=== PATIENT | female | born 1985 | race African-American/Black ===

== ENCOUNTER 2024-12-15 10:21 | Observation (INO) | payer OTHER ==
[~2024-12-15] VITALS: Ht 167.6 cm; Wt 70.3 kg
[2024-12-15] VITALS (10 sets, daily range): BP systolic 104–112; BP diastolic 62–73; PULSE 70–88; RESP 15–20; TEMP 97.9–98.7; O2SAT 100
[2024-12-15 10:59] LABS: BASOPHILS # (AUTO) 0.1 (0.0-0.1); BASOPHILS % 1.6 % (0.0-1.0); EOSINOPHILS % 0.6 % (0.0-6.0); LYMPHOCYTES # (AUTO) 0.8 (1.0-3.2); LYMPHOCYTES % 25.3 % (18.0-39.1); MEAN CORPUSCULAR HEMOGLOBIN 15.3 pg (28-32); MEAN CORPUSCULAR HGB CONC 24.7 g/dL (31-35); MONOCYTES # (AUTO) 0.3 (0.2-0.8); MONOCYTES % 8.1 % (4.4-11.3); NEUTROPHILS % 64.1 % (38.7-80.0); PLATELET COUNT 134 x10e3/uL (140-360); RED BLOOD COUNT 3.47 x10e6/uL (3.6-5.1); RED CELL DISTRIBUTION WIDTH 21.8 % (11.7-14.4); WHITE BLOOD COUNT 3.08 x10e3/uL (4.8-10.8)
[2024-12-15] MEDS: SODIUM CHLORIDE 0.9% 1000ML 1,000 ML IV STA (10:59)
[2024-12-15 11:03] LABS: HEMATOCRIT 21.5 % (34.2-44.1); HEMOGLOBIN 5.3 g/dL (12.0-16.0)
[2024-12-15 11:15] LABS: INR 0.94; PARTIAL THROMBOPLASTIN TIME 24.1 seconds (23.8-35.5); PROTHROMBIN TIME 13.1 seconds (11.9-14.5)
[2024-12-15 11:17] LABS: ALANINE AMINOTRANSFERASE 9 IU/L (0-55); ALBUMIN 4.6 g/dL (3.5-5.0); ALBUMIN/GLOBULIN RATIO 1.3 (0.8-2.0); ALKALINE PHOSPHATASE 57 IU/L (40-150); BILIRUBIN,TOTAL 0.4 mg/dL (0.2-1.2); BLOOD UREA NITROGEN 6 mg/dL (7-26); BUN/CREATININE RATIO 8 (6-25); CALCIUM 9.2 mg/dL (8.4-10.2); CARBON DIOXIDE 22 mmol/L (22-29); CHLORIDE 106 mmol/L (98-107); CREATININE, SERUM 0.77 mg/dL (0.57-1.11); EST GLOMERULAR FILTRATION RATE 101 ML/MIN (>=60); GLUCOSE 82 mg/dL (74-118); SODIUM 139 mmol/L (136-145); TOTAL PROTEIN 8.1 g/dL (6.5-8.1)
[2024-12-15] MEDS ORDERED: ONDANSETRON HCL INJ 2MG/ML 2ML 2 MG/ML VIAL IV PRN (11:30)
[2024-12-15 12:22] LABS: FERRITIN 6.19 ng/mL (4.63-204.00)
[2024-12-15] MEDS ORDERED: SODIUM CHLORIDE 0.9% 500ML 500 ML ONE (12:24)
[2024-12-15] MEDS ORDERED: ALBUTEROL/IPRATROPIUM 3 ML NEB NEB PRN (15:45)
[2024-12-15] MEDS ORDERED: ACETAMINOPHEN 325 MG TAB PO PRN (15:45)
[2024-12-15] MEDS ORDERED: METOPROLOL TARTRATE INJ 1 MG/ML VIAL IV PRN (15:45)
[2024-12-15] MEDS ORDERED: DOCUSATE SODIUM 100 MG CAP PO PRN (15:45)
[2024-12-15] MEDS ORDERED: SODIUM CHLORIDE 0.9% 250ML 250 ML ONE (17:43)
[2024-12-15] MEDS ORDERED: MELATONIN 3 MG TAB PO PRN (21:00)
[2024-12-15] MEDS: SODIUM CHLORIDE 0.9% 1000ML 1,000 ML IV SCH (21:42)
[2024-12-16 00:14] LABS: HEMATOCRIT 21.9 % (34.2-44.1); HEMOGLOBIN 6.3 g/dL (12.0-16.0)
[2024-12-16 04:00] VITALS: BP 106/72; PULSE 63; RESP 20; TEMP 98; O2SAT 100
[2024-12-16 08:19] VITALS: BP 117/76; PULSE 65; RESP 18; TEMP 98.7; O2SAT 100
[2024-12-16 08:21] VITALS: BP 117/76; PULSE 65; RESP 18; TEMP 98.7; O2SAT 100
[2024-12-16] MEDS ORDERED: SODIUM FERRIC GLUCONATE COMPLX 125 MG in SODIUM CHLORIDE 0.9% 100 ML IV SCH (09:00)
[2024-12-16] MEDS: CYANOCOBALAMIN INJ 1,000 MCG/ML VIAL IM SCH (09:29)
[2024-12-16] MEDS: IRON SUCROSE 100 MG in SODIUM CHLORIDE 0.9% 100 ML IV SCH (09:29)
[2024-12-16 09:52] LABS: BASOPHILS % 1.3 % (0.0-1.0); EOSINOPHILS % 0.3 % (0.0-6.0); HEMATOCRIT 27.5 % (34.2-44.1); HEMOGLOBIN 8.1 g/dL (12.0-16.0); LYMPHOCYTES # (AUTO) 0.8 (1.0-3.2); LYMPHOCYTES % 25.1 % (18.0-39.1); MEAN CORPUSCULAR HEMOGLOBIN 20.8 pg (28-32); MEAN CORPUSCULAR HGB CONC 29.5 g/dL (31-35); MEAN CORPUSCULAR VOLUME 70.7 fL (81-99); MONOCYTES # (AUTO) 0.3 (0.2-0.8); MONOCYTES % 8.7 % (4.4-11.3); NEUTROPHILS # (AUTO) 1.9 (2.1-6.9); NEUTROPHILS % 64.3 % (38.7-80.0); RED BLOOD COUNT 3.89 x10e6/uL (3.6-5.1); RED CELL DISTRIBUTION WIDTH 27.8 % (11.7-14.4); WHITE BLOOD COUNT 2.99 x10e3/uL (4.8-10.8)
[2024-12-16 09:59] LABS: PLATELET COUNT 80 x10e3/uL (140-360)
[2024-12-16 10:14] LABS: ALBUMIN 3.8 g/dL (3.5-5.0); ALBUMIN/GLOBULIN RATIO 1.3 (0.8-2.0); BILIRUBIN,TOTAL 1.6 mg/dL (0.2-1.2); CALCIUM 8.8 mg/dL (8.4-10.2); CREATININE, SERUM 0.71 mg/dL (0.57-1.11); TOTAL PROTEIN 6.8 g/dL (6.5-8.1)
[2024-12-16 12:00] VITALS: BP 107/72; PULSE 64; RESP 18; TEMP 98.2; O2SAT 100
[2024-12-16 14:27] VITALS: PULSE 66; RESP 18; O2SAT 98
[2024-12-16 14:35] LABS: HEMATOCRIT 27.4 % (34.2-44.1); HEMOGLOBIN 8.1 g/dL (12.0-16.0)
[2024-12-16] MEDS ORDERED: FEROSUL325 MG PO (15:12)
[2024-12-16] MEDS ORDERED: MULTIVITAMINS1 EAC6 PO (15:13)
[2024-12-16 15:30] VITALS: BP 106/74; PULSE 63; RESP 18; TEMP 97.9; O2SAT 98
== END 2024-12-16 15:53 | disposition home or self-care (01) ==
LOC: ER 10:37 → ERHOLD 11:24 → MED/SURG 14:00
PROVIDERS: ADMIT Internal Medicine; ATTEND Internal Medicine
DX: D50.0 Iron deficiency anemia secondary to blood loss (chronic) (principal); N92.0 Excessive and frequent menstruation with regular cycle; R42 Dizziness and giddiness; D61.818 Other pancytopenia; D25.9 Leiomyoma of uterus, unspecified
CPT/HCPCS: 36415 ×2; 36430; 71045; 80053 ×2; 82728; 83540; 84466; 84702; 85014 ×2; 85018 ×2; 85025 ×2; 85610; 85730; 86850; 86900; 86920; 93005; 94799; 99284; G0378 ×2; J1756; J2470; J3420; J7030 ×2; J7040; J7050 ×2; P9016 ×2